=== PATIENT | female | born 1985 | race Caucasian/White ===

== ENCOUNTER 2016-12-03 13:08 | Emergency (ER) | payer MEDICAID ==
[2016-12-03 14:12] VITALS: BP 135/99
== END 2016-12-03 14:22 | disposition home or self-care (01) ==
LOC: ED 13:08
DX: O26.891 Other specified pregnancy related conditions, first trimester (principal); R10.9 Unspecified abdominal pain; R10.30 Lower abdominal pain, unspecified; I10 Essential (primary) hypertension; Z3A.08 8 weeks gestation of pregnancy; Z79.899 Other long term (current) drug therapy

== ENCOUNTER 2017-10-14 08:28 | Emergency (ER) | payer MEDICAID ==
[~2017-10-14] VITALS: Ht 167.6 cm; Wt 81.6 kg
[2017-10-14 08:42] VITALS: Ht 167.6 cm; Wt 81.6 kg
[2017-10-14 09:24] LABS: BASOPHIL % 0.2 % (0-2); PLATELET COUNT 309 x10^3mcL (130-400)
[2017-10-14 09:33] LABS: CALCIUM 8.7 mg/dL (8.5-10.1); CARBON DIOXIDE 25.7 mmol/L (21-32); CHLORIDE SERUM 101 mmol/L (98-107); CREATININE SERUM 0.9 mg/dL (0.6-1.0); GFR1 > 60 mL/min; GLUCOSE SERUM 97 mg/dL (74-106); POTASSIUM SERUM 3.8 mmol/L (3.5-5.1); SODIUM SERUM 136 mmol/L (136-145)
[2017-10-14 09:34] LABS: RED CELL DISTRIBUTION WIDTH 18.5 % (11.5-14.5)
[2017-10-14 09:38] LABS: ALBUMIN 4.3 g/dL (3.4-5.0); ALKALINE PHOSPHATASE 64 U/L (46-116); ALT/SGPT 96 U/L (14-59); AST/SGOT 51 U/L (15-37)
[2017-10-14 09:48] LABS: TOTAL PROTEIN, SERUM 8.6 g/dL (6.4-8.2)
[2017-10-14 10:08] VITALS: BP 137/94
== END 2017-10-14 10:30 | disposition home or self-care (01) ==
LOC: ED 08:28
PROVIDERS: Emergency Medicine
DX: N20.0 Calculus of kidney (principal); N23 Unspecified renal colic
CPT/HCPCS: J1885; J7030

== ENCOUNTER 2017-10-15 19:09 | Inpatient (IN) | payer MEDICAID ==
[~2017-10-15] VITALS: Ht 167.6 cm; Wt 77.9 kg
[2017-10-15 22:01] LABS: PLATELET COUNT 257 x10^3mcL (130-400)
[2017-10-15 22:08] LABS: BASOPHIL % 0 % (0-2); RED CELL DISTRIBUTION WIDTH 18.5 % (11.5-14.5)
[2017-10-15 22:10] LABS: CALCIUM 8.6 mg/dL (8.5-10.1); CHLORIDE SERUM 103 mmol/L (98-107); CREATININE SERUM 0.7 mg/dL (0.6-1.0); GFR1 > 60 mL/min; GLUCOSE SERUM 102 mg/dL (74-106); POTASSIUM SERUM 3.6 mmol/L (3.5-5.1); SODIUM SERUM 133 mmol/L (136-145)
[2017-10-15 22:16] LABS: ALBUMIN 3.5 g/dL (3.4-5.0); ALKALINE PHOSPHATASE 73 U/L (46-116); ALT/SGPT 67 U/L (14-59); AMYLASE 39 U/L (25-115); AST/SGOT 36 U/L (15-37); BILIRUBIN TOTAL 0.7 mg/dL (0.20-1.00); LIPASE 90 IU/L (73-393); TOTAL PROTEIN, SERUM 8.1 g/dL (6.4-8.2)
[2017-10-15 22:52] LABS: microscopic required? YES; urine erythrocyte 3+ (NEGATIVE)
[2017-10-15 23:47] VITALS: BP 171/111
[2017-10-16] VITALS (8 sets, daily range): BP systolic 135–161; BP diastolic 93–109
[2017-10-16 05:28] LABS: BASOPHIL % 0.3 % (0-2); PLATELET COUNT 227 x10^3mcL (130-400)
[2017-10-16 05:31] LABS: RED CELL DISTRIBUTION WIDTH 18.9 % (11.5-14.5)
[2017-10-16 05:39] LABS: CALCIUM 7.9 mg/dL (8.5-10.1); CARBON DIOXIDE 23.9 mmol/L (21-32); CHLORIDE SERUM 106 mmol/L (98-107); CREATININE SERUM 0.7 mg/dL (0.6-1.0); GFR1 > 60 mL/min; GLUCOSE SERUM 94 mg/dL (74-106); POTASSIUM SERUM 3.3 mmol/L (3.5-5.1); SODIUM SERUM 138 mmol/L (136-145)
[2017-10-17 04:55] LABS: BASOPHIL % 0.3 % (0-2); PLATELET COUNT 257 x10^3mcL (130-400)
[2017-10-17 05:05] LABS: RED CELL DISTRIBUTION WIDTH 18.7 % (11.5-14.5)
[2017-10-17 05:33] VITALS: BP 147/101
[2017-10-17 06:27] LABS: POTASSIUM SERUM 3.9 mmol/L (3.5-5.1); SODIUM SERUM 137 mmol/L (136-145)
[2017-10-17 06:28] LABS: CARBON DIOXIDE 25.3 mmol/L (21-32); CHLORIDE SERUM 104 mmol/L (98-107); CREATININE SERUM 0.7 mg/dL (0.6-1.0); GFR1 > 60 mL/min; GLUCOSE SERUM 99 mg/dL (74-106)
[2017-10-17 06:29] LABS: CALCIUM 8.3 mg/dL (8.5-10.1)
[2017-10-17 08:52] VITALS: BP 149/109
[2017-10-17 12:16] VITALS: BP 154/111
[2017-10-17 14:04] VITALS: BP 154/111
[2017-10-17] MEDS ORDERED: FLO4 PO (14:35)
[2017-10-17] MEDS ORDERED: LEVAQUIN750 MG PO (14:36)
== END 2017-10-17 15:10 | disposition home or self-care (01) | DRG 720 ==
LOC: ED 19:09 → DU 23:01 → IC 23:01 → DU 23:42 → IC 10-16 01:23 → DU 10-16 10:27 → MU 10-17 06:49
PROVIDERS: Family Medicine; Specialist; Urology
PROC: BT1FZZZ Fluoroscopy of Left Kidney, Ureter and Bladder (ICD-10-PCS; 2017-10-16)
PROC: 05HM33Z Insertion of Infusion Device into Right Internal Jugular Vein, Percutaneous Approach (ICD-10-PCS; 2017-10-16)
PROC: B543ZZA Ultrasonography of Right Jugular Veins, Guidance (ICD-10-PCS; 2017-10-16)
PROC: 0T778DZ Dilation of Left Ureter with Intraluminal Device, Via Natural or Artificial Opening Endoscopic (ICD-10-PCS; principal; 2017-10-16 07:30)
DX: A41.9 Sepsis, unspecified organism (principal); N17.0 Acute kidney failure with tubular necrosis; R65.21 Severe sepsis with septic shock; E87.1 Hypo-osmolality and hyponatremia; N13.6 Pyonephrosis; B96.20 Unspecified Escherichia coli [E. coli] as the cause of diseases classified elsewhere; E87.6 Hypokalemia; Z68.29 Body mass index [BMI] 29.0-29.9, adult
CPT/HCPCS: 36556; 83880; C1769; C2625; J0696; J1580; J1642; J1885; J2060; J2250; J2405; J2704; J3010; J3490; J7030; J7120; Q0092; Q9967

== ENCOUNTER 2019-03-11 20:53 | Emergency (ER) | payer MEDICAID ==
[~2019-03-11] VITALS: Ht 167.6 cm; Wt 77.1 kg
[~2019-03-11 20:53] MED LIST: FLO4 PO; LEVAQUIN750 MG PO
[2019-03-11 21:10] VITALS: BP 163/114; Ht 167.6 cm; Wt 77.1 kg
== END 2019-03-11 22:32 | disposition home or self-care (01) ==
LOC: ED 20:53
DX: S86.912A Strain of unspecified muscle(s) and tendon(s) at lower leg level, left leg, initial encounter (principal); X58.XXXA Exposure to other specified factors, initial encounter; Y93.89 Activity, other specified; Y92.89 Other specified places as the place of occurrence of the external cause; Y99.8 Other external cause status